=== PATIENT | female | born 1935 | race Caucasian/White ===

== ENCOUNTER 2023-07-30 10:37 | Emergency (ER) | payer MEDICARE, OTHER ==
[2023-07-30 12:12] VITALS: BP 165/75; PULSE 64
== END 2023-07-30 12:20 ==
LOC: LL.ED 10:37
DX: M53.3 Sacrococcygeal disorders, not elsewhere classified (principal); Z88.0 Allergy status to penicillin; Z88.1 Allergy status to other antibiotic agents; Z88.2 Allergy status to sulfonamides; Z88.8 Allergy status to other drugs, medicaments and biological substances; W19.XXXA Unspecified fall, initial encounter
CPT/HCPCS: 72220; 99284